=== PATIENT | male | born 1935 | race Caucasian/White ===

== ENCOUNTER 2017-04-23 10:21 | Emergency (ER) | payer MEDICARE, BC ==
[2017-04-23 10:44] VITALS: BP 118/60
--- NOTE | 2017-04-23 10:51 | UC ---
Complaint Male HPI - HPI Summary HPI Summary: 81 YEAR OLD MALE PRESENTS WITH LEFT NON REDUCIBLE INDIRECT HERNIA. I WILL SEND HIM TO THE ER - History of Current Complaint Chief Complaint: UCGU Stated Complaint: PERSONAL Time Seen by Provider: 04/23/17 10:41 - Allergies/Home Medications Allergies/Adverse Reactions: Allergies Allergy/AdvReac Type Severity Reaction Status Date / Time Penicillins Allergy Unknown Verified 04/23/17 10:36 Reaction Details Home Medications: Home Medications Aspirin [Aspirin 81 MG TAB] 81 mg PO DAILY 04/23/17 [History Confirmed 04/23/17] Atorvastatin* [Lipitor*] 10 mg PO Q48H 04/23/17 [History Confirmed 04/23/17] Cholecalciferol [Vitamin D] 1,000 unit PO DAILY 04/23/17 [History Confirmed 11/09] Ciprofloxacin TAB* [Cipro 500 MG TAB*] 500 mg PO BID 04/23/17 [History Confirmed 04/23/17] PMH/Surg Hx/FS Hx/Imm Hx - Surgical History Surgical History: Yes Surgery Procedure, Year, and Place: open heart, prostate - Social History Alcohol Use: Occasionally Substance Use Type: None Smoking Status (MU): Former Smoker When Did the Patient Quit Smoking/Using Tobacco: 30-40 years ago Review of Systems Constitutional: Negative Skin: Negative Eyes: Negative ENT: Negative Respiratory: Negative Cardiovascular: Negative Gastrointestinal: Negative Genitourinary: Other - LEFT SCROTAL PAIN Motor: Negative Neurovascular: Negative Musculoskeletal: Negative Neurological: Negative Psychological: Negative All Other Systems Reviewed And Are Negative: Yes Physical Exam Triage Information Reviewed: Yes Vital Signs: Initial Vital Signs Temp 37.1 C 04/23/17 10:40 Pulse 64 04/23/17 10:40 Resp 18 04/23/17 10:40 BP 118/60 04/23/17 10:40 Pulse Ox 99 04/23/17 10:40 Eye Exam: Normal ENT Exam: Normal Dental Exam: Normal Neck exam: Normal Neck: Positive: 1 Respiratory Exam: Normal Cardiovascular Exam: Normal Abdominal Exam: Normal Musculoskeletal Exam: Normal Neurological Exam: Normal Psychological Exam: Normal Skin Exam: Normal - Additional Comments LEFT SCROTUM PAIN Complaint Male Course/Dx - Differential Dx/Diagnosis Provider Diagnoses: LEFT SCROTAL PAIN. LEFT INDIRECT HERNIA Discharge - Discharge Plan Condition: Guarded Disposition: [facility] Patient Education Materials: Testicle Pain (ED) Referrals: Irineo Akhtar MD [Primary Care Provider] -
== END 2017-04-23 11:08 | disposition short-term general hospital (02) ==
LOC: UCCORT 10:21
DX: K40.90 Unilateral inguinal hernia, without obstruction or gangrene, not specified as recurrent (principal); N50.82 Scrotal pain; Z88.0 Allergy status to penicillin; Z79.82 Long term (current) use of aspirin; Z87.891 Personal history of nicotine dependence
CPT/HCPCS: 99212; G0463